=== PATIENT | female | born 1975 | race African-American/Black ===

== ENCOUNTER 2016-05-19 13:32 | Emergency (ER) | payer MEDICAID ==
[~2016-05-19] VITALS: Ht 175.3 cm; Wt 110.0 kg
[2016-05-19] MEDS ORDERED: KETOROLAC 30MG/ML VIAL IM ONE (15:45)
[2016-05-19 15:48] VITALS: BP 141/89
== END 2016-05-19 16:03 | disposition home or self-care (01) ==
LOC: ER 13:34
DX: S93.401A Sprain of unspecified ligament of right ankle, initial encounter (principal); W19.XXXA Unspecified fall, initial encounter; Y93.89 Activity, other specified; Y92.89 Other specified places as the place of occurrence of the external cause; Y99.8 Other external cause status
CPT/HCPCS: 73610; 81025; 96372; 99284; J1885

== ENCOUNTER 2017-02-13 13:20 | Emergency (ER) | payer MEDICAID ==
[~2017-02-13] VITALS: Ht 170.2 cm; Wt 67.0 kg
[2017-02-13 13:22] VITALS: BP 179/94
== END 2017-02-13 22:09 | disposition left against medical advice (07) ==
LOC: ER 14:07
DX: R09.81 Nasal congestion (principal); H92.03 Otalgia, bilateral; R51 Headache; Z53.21 Procedure and treatment not carried out due to patient leaving prior to being seen by health care provider